=== PATIENT | female | born 1985 | race African-American/Black ===

== ENCOUNTER 2017-07-03 08:14 | Emergency (ER) | payer BC, OTHER ==
[~2017-07-03] VITALS: Ht 162.6 cm; Wt 76.2 kg
--- NOTE | 2017-07-03 08:24 | Emergency Room Report ---
History of Present Illness General Chief Complaint: To Be Triaged Source: Patient Present Illness HPI 32YOF walk-in with right sided neck pain. Did strenuous weight training class 2 days ago Woke up today with stiff neck Pain when turning to right Denies pain/swelling to other extremities Took Ibuprofen this morning, not much improvement Allergies: Coded Allergies: No Known Allergies (Unverified , 07/03/17) Patient History Past Medical History: none Past Surgical History: none Pertinent Family History: none Social History: Denies: smoking, alcohol use, drug use Now: No Immunizations: UTD Reviewed Nursing Documentation: PMH: Agreed, PSxH: Agreed Review of Systems All Other Systems: negative except mentioned in HPI Physical Exam Sp02 EP Interpretation: reviewed, normal General Appearance: normal inspection, well appearing, no apparent distress, alert, GCS 15, non-toxic Head: normocephalic, atraumatic Eyes: bilateral eye PERRL, bilateral eye EOMI ENT: normal ENT inspection, hearing grossly normal, no angioedema, normal voice Neck: normal inspection, supple, thyroid normal, no meningismus, no bony tend, other - Right posterior SCM ttp, spasming Respiratory: normal inspection, lungs clear, normal breath sounds, no respiratory distress, no retraction, no wheezing Cardiovascular #1: regular rate, rhythm, no edema Gastrointestinal: normal inspection, normal bowel sounds, non tender, soft, no guarding, no hernia Genitourinary: no CVA tenderness Musculoskeletal: normal inspection, back normal, normal range of motion, Deysi' s Sign negative Neurologic: normal inspection, alert, oriented x3, responsive, whitesmith III-XII nml as tested, motor strength/tone normal, speech normal Psychiatric: normal inspection, judgement/insight normal, mood/affect normal Skin: normal inspection, normal color, no rash Lymphatic: normal inspection Medical Decision Making Diagnostic Impression: Primary Impression: Neck pain ER Course Likely MSK pain, spasm Patient driving, just took Ibuprofen Prefers Rx which were provided Advised massage, PMD followup, ice/heat DC home Status: improved Disposition: HOME, SELF-CARE Scripts Oxycodone/Acetaminophen 5-325* (PERCOCET 5-325 MG TABLET*) 1 Each Tablet 1 TAB ORAL Q8HR Y for neck spasm for 7 Days, #14 TAB 0 Refills Prov: GREGORY POOL M.D. 07/03/17 Diazepam* (VALIUM*) 5 Mg Tablet 5 MG ORAL BID Y for neck spasm for 7 Days, #14 TAB 0 Refills Prov: GREGORY POOL M.D. 07/03/17 GREGORY POOL M.D. Jul 03, 2017 08:24
[2017-07-03] MEDS ORDERED: NKM (08:30)
[2017-07-03] MEDS ORDERED: VALIUM5 MG ORAL (08:50)
[2017-07-03] MEDS ORDERED: PERCOCET 5-3251 EACH ORAL (08:50)
[2017-07-03 08:55] VITALS: BP 120/78
== END 2017-07-03 09:00 | disposition home or self-care (01) ==
LOC: EMR 08:40
DX: M54.2 Cervicalgia (principal)
CPT/HCPCS: 99284